=== PATIENT | female | born 1975 | race Two or more races ===

== ENCOUNTER 2020-02-27 08:04 | Outpatient (REF) | payer OTHER, SELFPAY | END 2020-02-27 08:05 | disposition home or self-care (01) | LOC: HO.LAB 08:04 | PROVIDERS: PCP Internal Medicine; Visit Provider Internal Medicine | DX: Z20.828 Contact with and (suspected) exposure to other viral communicable diseases (principal) | CPT/HCPCS: C9803; U0003 ==

== ENCOUNTER → 2020-03-23 12:43 | Outpatient (BNVA) | payer OTHER, SELFPAY | PROVIDERS: PCP Internal Medicine; Visit Provider Orthopaedic Surgery | DX: G56.03 Carpal tunnel syndrome, bilateral upper limbs (principal) | CPT/HCPCS: 20526; 20600; 99212; J1100 ==

== ENCOUNTER → 2020-04-08 10:45 | Outpatient (BNVA) | payer OTHER, SELFPAY | PROVIDERS: PCP Internal Medicine; Visit Provider Surgery | DX: L72.3 Sebaceous cyst (principal) | CPT/HCPCS: 99202 ==

== ENCOUNTER 2020-04-16 08:16 | Outpatient (REF) | payer OTHER, SELFPAY ==
[2020-04-16 08:21] VITALS: BP 128/67; PULSE 81; RESP 16; TEMP 36; O2SAT 99
[2020-04-16 08:22] VITALS: BMI 27.4
[2020-04-16 08:49] VITALS: BP 120/70; PULSE 73; RESP 16; O2SAT 99
--- NOTE | 2020-04-16 09:00 | MHC.SHP ---
Pre-Procedural Eval Section A The patient is an INPATIENT: No Changes since office visit: Yes Patient answered all questions; No Cold of Flu in the past 2 weeks, No New Medical Problems and No Changes in Medication The History & Physical has been completed within 30 days and I have reviewed it.: Yes Section B Chief Complaint: Sebaceous Cyst Allergies: Allergies Allergy/AdvReac Type Severity Reaction Status Date / Time No Known Allergies Allergy Unverified 12/12/19 17:45 Plan Diagnosis/Plan: Unchanged I have reviewed the history and physical and performed a pertinent physical examination on my patient. No changes have occurred unless specified.
--- NOTE | 2020-04-16 09:00 | PM.OP ---
Brief Operative Note Date of Service: 04/16/20 Pre-op diagnosis: Epidermal inclusion cyst posterior neck Post-op diagnosis: same Procedure: Excision of epidermal inclusion cyst posterior neck Implants: None Surgeon: Philip Craft MD Anesthesia: local Estimated blood loss (mL): 5 Pathology: other (Epidermal inclusion cyst posterior neck) Condition: stable Disposition: other (Home)
--- NOTE | 2020-04-16 09:01 | P.OP_ITS ---
Operative Note Operative Note Date of Service: 04/16/20 Narrative: Preoperative diagnosis: Epidermal inclusion cyst posterior neck Postoperative diagnosis: Same Procedure: Excision of epidermal inclusion cyst posterior neck Surgeon: Philip Craft MD Anesthesia: Local Indications for procedure: 44-year-old female presenting with a recurrent inclusion cyst of the posterior neck previously infected but now without evidence of infection. On examination the patient has a 1.5 cm inclusion cyst of the posterior neck with multiple scars overlying the cyst. No fluctuance or tenderness is elicited. Operative findings: 1.5 cm epidermal inclusion cyst posterior neck Complications: None Estimated blood loss: 5 mL Specimen: Epidermal inclusion cyst posterior Procedure details: Patient was brought to the minor surgery suite and placed in a prone position. The site of surgery was confirmed by the patient in the posterior neck. Informed consent was confirmed with the patient. The skin was prepped with Betadine and draped in a sterile fashion. Local anesthesia c onsisting 1% lidocaine with epinephrine was then infiltrated in elliptical fashion oriented transversely. An elliptical incision was then created with a scalpel carried down through subcutaneous tissue. Sharp dissection was continued around the cyst wall down to the subcutaneous tissue. The cyst was excised and sent to pathology for further examination. Wounds were then irrigated and suctioned dry. Deep subcutaneous tissue was closed using interrupted 3-0 Polysorb sutures. Skin was closed using interrupted 3 0 nylon sutures. Sterile dressings were then applied. The patient tolerated the procedure well. She was discharged to home in stable condition.
== END 2020-04-16 08:17 | disposition home or self-care (01) ==
LOC: HO.MS 08:16
PROVIDERS: PCP Internal Medicine; Visit Provider Surgery
PROC: (CPT 11422; principal; 2020-04-16 08:30)
DX: L72.0 Epidermal cyst (principal)
CPT/HCPCS: 11422; 88304

== ENCOUNTER → 2020-04-24 11:49 | Outpatient (BNVA) | payer OTHER, SELFPAY | PROVIDERS: PCP Internal Medicine; Visit Provider Surgery | DX: L72.3 Sebaceous cyst (principal) | CPT/HCPCS: 99212 ==

== ENCOUNTER 2021-08-25 12:48 | Outpatient (REF) | payer OTHER, SELFPAY ==
[2021-08-25 13:29] LABS: Binax Internal Control QC Valid; Binax Now Covid-19 Ag Negative (Negative)
== END 2021-08-25 12:49 | disposition home or self-care (01) ==
LOC: HO.HMGCLDS 12:48
PROVIDERS: PCP Internal Medicine; Visit Provider Internal Medicine
DX: Z20.822 Contact with and (suspected) exposure to COVID-19 (principal); J06.9 Acute upper respiratory infection, unspecified
CPT/HCPCS: 87811; C9803

== ENCOUNTER → 2021-11-16 09:35 | Outpatient (BNVA) | payer OTHER, SELFPAY | PROVIDERS: PCP Internal Medicine; Visit Provider Orthopaedic Surgery | DX: G56.03 Carpal tunnel syndrome, bilateral upper limbs (principal); G56.21 Lesion of ulnar nerve, right upper limb | CPT/HCPCS: 99212 ==

== ENCOUNTER 2021-12-09 10:52 | Day surgery (SDC) | payer OTHER, SELFPAY ==
[2021-12-03 11:11] VITALS: BMI 29.7
[2021-12-09 11:12] VITALS: BMI 30.1
[2021-12-09 11:14] VITALS: BP 120/77; PULSE 90; RESP 16; TEMP 36.6; O2SAT 97
[2021-12-09 13:05] VITALS: PULSE 88; RESP 16; O2SAT 97
--- NOTE | 2021-12-09 13:26 | MHC.SHP ---
Pre-Procedural Eval Section A Date of Service: 12/09/21 The patient is an INPATIENT: No Changes since office visit: No Cold of Flu in the past 2 weeks, No New Medical Problems, No Changes in Medication and No Patient answered all questions The History & Physical has been completed within 30 days and I have reviewed it.: Yes Section B Chief Complaint: Carpal tunnel syndrome, left upper limb Allergies: Allergies Allergy/AdvReac Type Severity Reaction Status Date / Time No Known Allergies Allergy Verified 11/16/21 09:43 Plan I have reviewed the history and physical and performed a pertinent physical examination on my patient. No changes have occurred unless specified.
--- NOTE | 2021-12-09 13:27 | W.PM.OPN ---
Operative Note Operative Note Date of Service: 12/09/21 Narrative: Preop diagnosis: 1. Left Carpal tunnel syndrome Postop diagnosis: same Procedure: 1. Left Carpal tunnel release Surgeon: Alexandra Vicente MD Anesthesia: local block using 1% lidocaine with epinephrine Findings: Thickened transverse carpal ligament. EBL: Less than 5 mL Specimens: None Complications: None Disposition: Brought to recovery room in stable condition Plan: Follow-up for 10-14 days for wound check and suture removal Indications: The patient is 46 years old, with left carpal tunnel syndrome that has been unresponsive to nonoperative management. The risks and benefits of operative treatment including but not limited to risk of damage to blood vessels, nerves, tendons, infection, persistent pain, persistent symptoms, or possible need for additional surgery were discussed with the patient and the patient wishes to proceed with surgery. Procedure: Once consent was obtained a local block was performed using a combination of 1% lidocaine with epinephrine. The patient was then brought back to the operating suite and placed on the operative table in supine position. A tourniquet was applied to the proximal aspect of the left upper extremity and the limb was prepped and draped in a standard surgical fashion. Once assured that we had a good block, a 2.0 cm longitudinal incision was made centered over the carpal tunnel. The incision was made through the skin to the subcutaneous tissues using a #15 blade. Dissection was made down to the level of the transverse carpal ligament with care being taken to protect the palmar cutaneous nerve. Once the transverse carpal ligament was clearly visualized, a longitudinal incision was made in the transverse carpal ligament 1st using a #15 blade, then using tenotomy scissors under direct visualization. Care was taken to look for and protect the motor branch of the median nerve when seen in this area. Once satisfied with our carpal tunnel release the wound was copiously irrigated with normal saline and hemostasis was obtained with a brief period of local pressure. The skin edges were reapproximated with some 5.0 nylon suture material and a sterile dressing was applied. The patient appears to have tolerated the procedure well and with no complications. All digits were well vascularized at the conclusion of the case.
== END 2021-12-09 13:07 | disposition home or self-care (01) ==
PROVIDERS: PCP Internal Medicine; Visit Provider Orthopaedic Surgery
PROC: (CPT 64721; principal; 2021-12-09 11:50)
DX: G56.02 Carpal tunnel syndrome, left upper limb (principal); R20.0 Anesthesia of skin; E66.9 Obesity, unspecified; Z68.27 Body mass index [BMI] 27.0-27.9, adult
CPT/HCPCS: 64721; J0171

== ENCOUNTER 2021-12-14 11:26 | Outpatient (REF) | payer OTHER, SELFPAY ==
[2021-12-14 11:42] LABS: MANUAL DIFF FLAG NO
[2021-12-14 12:17] LABS: Basophils Absolute Auto 0.1 X10*3/uL (0.0-0.2); Basophils Percent Auto 0.6 % (0-2); Eosinophils Absolute Auto 0.1 X10*3/uL (0.0-0.4); Eosinophils Percent Auto 1.2 % (0-4); Hemoglobin 13.6 g/dl (12.0-16.0); Imm Gran Abs Auto 0.03 X10*3/uL (0.00-0.03); Imm Gran Pct Auto 0.4 % (0.0-0.4); Lymphocytes Absolute Auto 2.4 X10*3/uL (1.2-4.9); Lymphocytes Percent Auto 28.6 % (20-40); Mean Corpuscular HGB Conc 33.2 g/dl (31.0-35.0); Mean Corpuscular Hemoglobin 29.5 pg (27.0-33.0); Mean Corpuscular Volume 88.9 fL (80.0-98.0); Mean Platelet Volume 11.6 fL (9.4-12.3); Monocytes Absolute Auto 0.6 X10*3/uL (0.1-1.2); Monocytes Percent Auto 6.5 % (2-11); Neutrophils Absolute Auto 5.3 x10*3/uL (2.0-8.3); Neutrophils Percent Auto 62.7 % (45-73); Platelet Count 240 X10*3/uL (160-400); Red Blood Count 4.61 X10*6/uL (4.20-5.50); Red Cell Distribution Width 12.2 % (11.0-16.0); White Blood Count 8.4 X10*3/uL (4.8-10.8)
[2021-12-14 12:45] LABS: Prothrombin Time 11.1 SEC (10.0-13.1)
[2021-12-14 12:48] LABS: Partial Thromboplastin Time 32.5 SEC (26.0-36.4)
[2021-12-14 13:04] LABS: Alanine Aminotransferase 16 U/L (0-31); Albumin Level 4.5 g/dL (3.5-5.0); Alkaline Phosphatase 81 U/L (39-117); Anion Gap 15 (12-20); Aspartate Amino Transferase 13 U/L (5-31); Bilirubin Total 0.8 mg/dL (0.0-1.0); Blood Urea Nitrogen 11 mg/dL (9-16); Calcium 10.1 mg/dL (8.4-10.2); Carbon Dioxide 25 mmol/L (22-29); Chloride 106 mmol/L (96-108); Cholesterol 270 mg/dL; Estimated Glomerular Filt Rate > 60; Glucose Fasting 92 mg/dL (60-99); HDL Cholesterol 43 mg/dL; LDL Cholesterol Calculated 200 mg/dl; Potassium 4.4 mmol/L (3.3-5.1); Sodium 142 mmol/L (135-145); Total Protein 7.9 g/dL (6.5-8.0); Triglycerides 136 mg/dL
[2021-12-14 13:12] LABS: Thyroid Stimulating Hormone 1.04 uIU/mL (0.32-4.0)
== END 2021-12-14 11:27 | disposition home or self-care (01) ==
LOC: HO.LAB 11:26
PROVIDERS: PCP Internal Medicine; Visit Provider Internal Medicine
DX: Z01.818 Encounter for other preprocedural examination (principal); E03.9 Hypothyroidism, unspecified; I10 Essential (primary) hypertension; E78.5 Hyperlipidemia, unspecified; Z13.0 Encounter for screening for diseases of the blood and blood-forming organs and certain disorders involving the immune mechanism
CPT/HCPCS: 36415; 80053; 80061; 84443; 85025; 85610; 85730

== ENCOUNTER 2021-12-22 12:13 | Outpatient (REF) | payer OTHER, SELFPAY ==
--- NOTE | ~2021-12-22 | XR_ITS ---
EXAMINATION: XR KNEE, LEFT CLINICAL INFORMATION: Pain COMPARISON: None TECHNIQUE: AP and lateral upright views of the left knee. FINDINGS: No fracture or subluxation. Compartmental joint spaces are maintained. Small joint effusion. The soft tissues are otherwise unremarkable. XR/XR knee LT 2V IMPRESSION: Small joint effusion. No osseous abnormality.
== END 2021-12-22 12:14 | disposition home or self-care (01) ==
LOC: HO.XRAY 12:13
PROVIDERS: PCP Internal Medicine; Visit Provider Internal Medicine
DX: M25.562 Pain in left knee (principal)
CPT/HCPCS: 73560

== ENCOUNTER 2022-12-16 11:02 | Outpatient (AMB) | payer OTHER, SELFPAY ==
[2022-12-16 11:08] VITALS: BP 122/60; PULSE 72; O2SAT 98; BMI 30.1
--- NOTE | 2022-12-16 11:08 | A.OFFPC_ITS ---
Vital Signs 12/16/22 11:08 Height 5 ft 3 in Weight 170 lb BMI 30.1 BP 122/60 Blood Pressure Location Lt brachial Position Sitting Pulse 72 Pulse Source Pulse Oximeter Pulse Oximetry (%) 98 Oxygen Delivery Method Room Air Intake Visit Reasons: Annual Exam Hand Outside Cutter Required: No Accompanied by: Self / Same As Patient Allergies No Known Allergies Allergy (Verified 12/16/22 11:09) Medication List - Last Reconciled 12/16/22 by Jeyson Yost MD naproxen (Naprosyn) 500 mg PO BID PRN pantoprazole 40 mg PO DAILY scopolamine base 1 patch transdermal Q3D PRN tizanidine 4 mg PO Q8H PRN Tobacco use date assessed: 12/16/22 Dental Screening Dental Screen Date: 12/16/22 Did you have a dental visit in the last 12 months?: Yes Did you have a dental problem in the last 6 months where you did not have access to dental care?: No Was dental information given to patient?: Patient has dentist HPI Annual Exam HPI Details healthy [facility] Medical History Obesity Carpal tunnel syndrome on both sides Surgical History History of tubal ligation Family History Maternal Grandmother History of hypertension Maternal Uncle History of stomach cancer Social History Housing: House Patient Tobacco Use Status: Never used Tobacco e-Cigarette/Vaping Use: Never Used Second Hand Smoke Exposure: No service: No Current occupational status: unemployed Current occupation: - right handed Cognitive needs: No Hearing needs: No Vision needs: No Questionnaire PHQ-9 Over the last 2 weeks, how often have you been bothered by any of the following problems? 1. Little interest or pleasure in doing things: not at all 2. Feeling down, depressed, or hopeless: not at all 3. Trouble falling or staying asleep, or sleeping too much: not at all 4. Feeling tired or having little energy: not at all 5. Poor appetite or overeating: not at all 6. Feeling bad about yourself - or that you are a failure or have let yourself or your family down: not at all 7. Trouble concentrating on things, such as reading the newspaper or watching television: not at all 8. Moving or speaking so slowly that other people could have noticed. Or the opposite - being so fidgety or restless that you have been moving around a lot more than usual: not at all 9. Thoughts that you would be better off or of hurting yourself in some way: not at all Total score: 0 Depression Screening Interpretation: Negative 47042 - PHQ-9 Billing: Yes Source: Developed by Drs. Puma Blount, Monica Grullon, Juan Maria and colleagues, with an educational kishan from [employer]. Thrive Questionnaire Date Thrive assessed: 12/16/22 I am a: Patient What is your living situation today?: I have a steady place to live Within the past 12 months, did the food you bought not last and you didn't have the money to get more?: Never true Within the past 12 months, did you worry whether your food would run out before you got money to buy more?: Never true Do you have trouble paying for medicines?: No Do you have trouble getting transportation to medical appointments?: No Do you have trouble paying your heating and electricity bill?: No Do you have trouble taking care of your child, family member or friend?: No Do you have trouble with day-to-day activities such as bathing, preparing meals, shopping, managing finances, etc.?: No Are you interested in more education?: No Please select the resources that you would like help with: None AUDIT C Alcohol Use Questionnaire (AUDIT-C) 1. How often do you have a drink containing alcohol?: Never Total Score: 0 Score Reviewed/Action Taken: Yes MAGGIE-7 AMB Questionnaire MAGGIE-7 Date MAGGIE - 7 assessed: 12/16/22 Feeling nervous, anxious, or on edge: 0 = Not at all Not being able to stop or control worryin = Not at all Worrying too much about different things: 0 = Not at all Trouble relaxin = Not at all Being so restless that it is hard to sit still: 0 = Not at all Becoming easily annoyed or irritable: 0 = Not at all Feeling afraid as if something awful might happen: 0 = Not at all Total MAGGIE-7 score (0-4 normal; 5-9 mild; 10-14 moderate; 15-21 severe): 0 Source: Developed by Drs. Puma Blount, Monica Grullon, Juan Maria and colleagues, with an educational kishan from [employer]. MAGGIE-7 Assessment Billing MAGGIE-7 Assessment Tool: MAGGIE-7 Assessment 52595 Review of Systems Const Denies chills, Denies fatigue, Denies headache(s) and Denies weight loss Eyes Denies change in vision, Denies diplopia and Denies eye pain ENT Denies vertigo, Denies dizziness, Denies headache(s) and Denies nasal discharge Card Denies chest pain, Denies rapid heart rate and Denies dyspnea on exertion Resp Denies chest congestion, Denies cough, Denies pain with cough and Denies dyspnea on exertion GI Denies abdominal pain, Denies hematochezia and Denies change in bowel habits Musc Denies myalgias, Denies arthralgias and Denies joint swelling Skin/Breast Denies lesions and Denies unusual bruising Neuro Denies vertigo, Denies dizziness, Denies headache(s) and Denies focal weakness Endo Denies fatigue Physical exam (Primary Care) Vital Signs: Last Vital Signs Pulse 72 12/16/22 11:08 BP 122/60 12/16/22 11:08 Pulse Ox 98 12/16/22 11:08 Oxygen Delivery Method Room Air 12/16/22 11:08 BMI result Body Mass Index 30.1 Tobacco/Smoking Status: Tobacco use Status Tobacco use date assessed 12/16/22 12/16/22 11:13 Patient Tobacco Use Status Never used Tobacco 12/16/22 11:13 e-Cigarette/Vaping Use Never Used 12/16/22 11:13 PHQ-9: PHQ-9 Score PHQ-9: Total score 0 12/16/22 11:13 Depression Screening Interpretation: Negative Thrive Assessment: Date of Thrive Assessment Date Thrive assessed 12/16/22 12/16/22 11:13 Const General: cooperative, healthy appearing and no acute distress Orientation/consciousness: oriented to person, oriented to place and oriented to time HENMT Head: Yes normal to inspection, Yes normocephalic and Yes atraumatic Mouth: Normal oral and palatal mucosa present and tongue normal Throat: Yes posterior oropharynx normal and Yes uvula midline Eyes General: appearance normal, both eyes and all related structures Neck Neck: Yes normal visual inspection, Yes full ROM and Yes no lymphadenopathy Thyroid: Thyroid normal Carotids: normal carotid upstroke Chest Chest palpation & inspection: normal inspection of the chest Resp Effort & Inspection: normal respiratory effort and able to speak in complete sentences Auscultation: clear to auscultation bilaterally Cardio Jugular venous distension: no JVD Palpation: normal PMI Rate: regular rate Rhythm: regular rhythm Heart sounds: S1 normal heart sound present and S2 normal heart sound present GI Inspection: Yes normal to inspection Palpation (GI): Soft to palpation and No hepatosplenomegaly present Auscultation: normal bowel sounds General: Yes no CVA tenderness Back/Spine/Pelvis Back: no CVA tenderness Skin General skin exam: no rashes or lesions noted Neuro General: oriented to person, oriented to place and oriented to time Extrem General: Yes normal to inspection and Yes full ROM Assessment and Plan Assessment & Plan (1) Physical exam: Code(s): Z00.00 - Encounter for general adult medical examination without abnormal findings Plan: healthy; labs Orders: Orders Comprehensive [place]. Panel Fast Today N28.9 - Disorder of kidney and ureter, unspecified Lipid Panel Today E78.5 - Hyperlipidemia, unspecified Complete Blood Count Auto Diff Today D64.9 - Anemia, unspecified Thyroid Stimulating Hormone Today E03.9 - Hypothyroidism, unspecified Referrals Gastroenterology Referral Z12.11 - Encounter for screening for malignant neoplasm of colon Coding Level of Care Code Est Pt Prev Care 40-64y(93168) Diagnoses Physical exam Z00.00 Additional Codes MAGGIE-7 Assessment Billing - MAGGIE-7 Assessment Tool: MAGGIE-7 Assessment 02599 ([id number])
== END 2022-12-16 11:26 | disposition home or self-care (01) ==
PROVIDERS: PCP Internal Medicine; Visit Provider Internal Medicine
DX: Z00.00 Encounter for general adult medical examination without abnormal findings (principal)
CPT/HCPCS: 99396

== ENCOUNTER 2023-10-24 09:03 | Outpatient (AMB) | payer OTHER, SELFPAY ==
[2023-10-24 09:10] VITALS: BP 124/60; PULSE 94; O2SAT 99; BMI 31.2
--- NOTE | 2023-10-24 09:10 | MHC.PC.OV ---
Vital Signs 10/24/23 09:10 Height 5 ft 3 in Weight 176 lb BMI 31.2 BP 124/60 Blood Pressure Location Lt brachial Position Sitting Pulse 94 Pulse Source Pulse Oximeter Pulse Oximetry (%) 99 Oxygen Delivery Method Room Air Intake Visit Reasons: Pain in the arm Allergies No Known Allergies Allergy (Verified 01/18/23 15:12) Tobacco use date assessed: 10/24/23 Dental Screening Dental Screen Date: 10/24/23 Did you have a dental visit in the last 12 months?: Yes Did you have a dental problem in the last 6 months where you did not have access to dental care?: No Was dental information given to patient?: Patient has dentist HPI Pain in the arm HPI Details right shoulder pain for a week PFS Medical History Obesity Carpal tunnel syndrome on both sides Surgical History History of tubal ligation Family History Maternal Grandmother History of hypertension Maternal Uncle History of stomach cancer Social History (System 01/18/23 @ 15:12 by Lala Powers) Housing: House Patient Tobacco Use Status: Never used Tobacco e-Cigarette/Vaping Use: Never Used Second Hand Smoke Exposure: No service: No Current occupational status: unemployed Current occupation: - right handed Cognitive needs: No Hearing needs: No Vision needs: No Questionnaire PHQ-9 Over the last 2 weeks, how often have you been bothered by any of the following problems? 1. Little interest or pleasure in doing things: not at all 2. Feeling down, depressed, or hopeless: not at all 3. Trouble falling or staying asleep, or sleeping too much: not at all 4. Feeling tired or having little energy: not at all 5. Poor appetite or overeating: not at all 6. Feeling bad about yourself - or that you are a failure or have let yourself or your family down: not at all 7. Trouble concentrating on things, such as reading the newspaper or watching television: not at all 8. Moving or speaking so slowly that other people could have noticed. Or the opposite - being so fidgety or restless that you have been moving around a lot more than usual: not at all 9. Thoughts that you would be better off or of hurting yourself in some way: not at all Total score: 0 Depression Screening Interpretation: Negative Depression Screening Done: Yes 64977 - PHQ-9 Billing: Yes Source: Developed by Drs. Puma Blount, Monica Grullon, Juan Maria and colleagues, with an educational kishan from [employer]. Thrive Questionnaire Date Thrive assessed: 10/24/23 I am a: Patient What is your living situation today?: I have a steady place to live Within the past 12 months, did the food you bought not last and you didn't have the money to get more?: Never true Within the past 12 months, did you worry whether your food would run out before you got money to buy more?: Never true Do you have trouble paying for medicines?: No Do you have trouble getting transportation to medical appointments?: No Do you have trouble paying your heating and electricity bill?: No Do you have trouble taking care of your child, family member or friend?: No Do you have trouble with day-to-day activities such as bathing, preparing meals, shopping, managing finances, etc.?: No Are you currently unemployed and looking for a job?: No Are you interested in more education?: No Please select the resources that you would like help with: None THRIVE Score: 0 AUDIT C Alcohol Use Questionnaire (AUDIT-C) 1. How often do you have a drink containing alcohol?: Never Total Score: 0 Score Reviewed/Action Taken: Yes MAGGIE-7 AMB Questionnaire MAGGIE-7 Date MAGGIE - 7 assessed: 10/24/23 Source: Developed by Drs. Puma Blount, Monica Grullon, Juan Maria and colleagues, with an educational kishan from [employer]. Review of Systems Const Denies chills, Denies headache(s) and Denies weight loss ENT Denies headache(s) Card Denies chest pain, Denies syncope, Denies irregular heart rhythm and Denies dyspnea Resp Denies chest congestion, Denies cough and Denies dyspnea GI Denies abdominal pain, Denies change in stool character, Denies nausea and Denies vomiting Musc Denies deformity and Denies joint swelling Neuro Denies syncope and Denies headache(s) Physical exam (Primary Care) Vital Signs: Last Vital Signs Pulse 94 10/24/23 09:10 BP 124/60 10/24/23 09:10 Pulse Ox 99 10/24/23 09:10 Oxygen Delivery Method Room Air 10/24/23 09:10 BMI result Body Mass Index 31.2 Tobacco/Smoking Status: Tobacco use Status Tobacco use date assessed 10/24/23 10/24/23 09:14 Patient Tobacco Use Status Never used Tobacco 10/24/23 09:14 e-Cigarette/Vaping Use Never Used 10/24/23 09:14 PHQ-9: PHQ-9 Score PHQ-9: Total score 0 10/24/23 09:14 Depression Screening Interpretation: Negative Thrive Assessment: Date of Thrive Assessment Date Thrive assessed 10/24/23 10/24/23 09:14 Const General: cooperative, comfortable, no acute distress and alert Neck Neck: Yes no lymphadenopathy Thyroid: Thyroid normal Resp Effort & Inspection: normal respiratory effort Auscultation: clear to auscultation bilaterally Percussion: percussion normal Cardio Jugular venous distension: no JVD Palpation: normal PMI Rate: regular rate Rhythm: regular rhythm Heart sounds: S1 normal heart sound present and S2 normal heart sound present GI Inspection: Yes normal to inspection Palpation (GI): No hepatosplenomegaly present Skin General skin exam: no rashes or lesions noted Extrem General: Yes no clubbing, cyanosis or edema Assessment and Plan Assessment & Plan (1) Shoulder pain: Code(s): M25.519 - Pain in unspecified shoulder Plan: xr and rx sent Orders: Orders XR shoulder LT min 2V 10/24/23 M25.519 - Pain in unspecified shoulder PT Evaluation and Treatment 10/24/23 M25.519 - Pain in unspecified shoulder Medications: New omeprazole 20 mg PO DAILY 90 tabs 8RF Refilled naproxen (Naprosyn) 500 mg PO BID PRN 60 tabs 7RF pain Coding Level of Care Code Est Pt Level 3 (37614) Diagnoses Shoulder pain M25.519
== END 2023-10-24 09:34 | disposition home or self-care (01) ==
PROVIDERS: PCP Internal Medicine; Visit Provider Internal Medicine
DX: M25.511 Pain in right shoulder (principal)
CPT/HCPCS: 99213

== ENCOUNTER 2023-10-24 09:42 | Outpatient (REF) | payer OTHER, SELFPAY ==
--- NOTE | ~2023-10-24 | XR_ITS ---
EXAMINATION: XR SHOULDER, LEFT CLINICAL INFORMATION: Left shoulder pain COMPARISON: None available. TECHNIQUE: AP external rotation, Grashey, scapular Y, and axillary views of the left shoulder. FINDINGS: There is mild acromioclavicular osteoarthritis. Glenohumeral joint is well preserved. No fracture. Alignment is anatomic. Soft tissues are normal with no abnormal calcifications. XR/XR shoulder LT min 2V IMPRESSION: Mild acromioclavicular osteoarthritis. No acute osseous findings.
== END 2023-10-24 09:43 | disposition home or self-care (01) ==
LOC: HO.XRAY 09:42
PROVIDERS: PCP Internal Medicine; Visit Provider Internal Medicine
DX: M25.512 Pain in left shoulder (principal)
CPT/HCPCS: 73030

== ENCOUNTER 2023-11-21 10:38 | Outpatient (AMB) | payer OTHER, SELFPAY ==
--- NOTE | 2023-11-21 10:45 | A.OFFVIS_ITS ---
Vital Signs 11/21/23 10:46 Height 5 ft 3 in Weight 176 lb BMI 31.2 Intake Visit Reasons: NewProb- Carpal tunnel RT hand Intake Note: Nirali is a right hand dominant female who presents today for evaluation of her right hand carpal tunnel. 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 Denies locking on finger. Patient states pain is worse when doing normal daily activities. Patient states that she'd like to try wearing a brace to help with symptoms until her possible surgery. Denies prior steroid injections, PT, OT .meds with/without relief? Denies any surgery to the right hand, Left CTR done 12/09/[address] Vicente. Patient stated she had a bilateral EMG done. Allergies No Known Allergies Allergy (Verified 11/21/23 10:48) HPI HPI NewProb- Carpal tunnel RT hand: Details: Nirali is a 48 year old right hand dominant woman who presents to discuss her right carpal tunnel syndrome. She complains of numbness in the right median nerve distribution. Symptoms intermittent, but daily, worse at night. 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 She denies any small finger numbness. She has a hx of a left carpal tunnel release, DOS: 12/09/21. She says her sensation is normal, with occasional numbness in her hand. She is happy with the results of her surgery. [facility] Medical History Obesity Carpal tunnel syndrome on both sides Surgical History History of tubal ligation Family History Maternal Grandmother History of hypertension Maternal Uncle History of stomach cancer Social History (System 01/18/23 @ 15:12 by Lala Powers) Housing: House Patient Tobacco Use Status: Never used Tobacco e-Cigarette/Vaping Use: Never Used Second Hand Smoke Exposure: No service: No Current occupational status: unemployed Current occupation: - right handed Cognitive needs: No Hearing needs: No Vision needs: No Review of Systems Const All systems reviewed & are unremarkable except as noted in HPI and below Physical Exam Vital Signs: BMI result Body Mass Index 31.2 Const General: no acute distress and alert Orientation/consciousness: patient oriented x3 Neuro General: patient oriented x3 Extrem Other: Evaluation of Right Upper Extremity: The patient is alert, oriented, and in no acute distress Neuro: Median, Ulnar, Radial nerves motor and sensory intact and sensation is normal to the tips of all digits No thenar or intrinsic wasting Good APB muscle belly firing and good finger cross Vascular: Cap refill brisk ROM: She can make a fist and extend all her digits No locking or catching Nerve Conduction study: Impressions: 1. [id number] bilateral Carpal Tunnel 2. Mild right Cubital Tunnel Hoang De Luna MD 08/15/2019 Psych Appearance: grossly normal Affect: normal affect Attitude: cooperative Assessment & Plan Assessment & Plan (1) Carpal tunnel syndrome on both sides: Code(s): G56.03 - Carpal tunnel syndrome, bilateral upper limbs Category: Medical (2) Cubital tunnel syndrome on right: Code(s): G56.21 - Lesion of ulnar nerve, right upper limb Category: Medical Plan Assessment & Plan: 1. Right Carpal Tunnel syndrome, mild-moderate Symptoms intermittent but daily, worse at night I educated her about this condition I discussed operative and non-operative treatment options The patient would like to proceed with surgery She was fitted for a velcro wrist splint to wear at night The risks and benefits of operative treatment were discussed with the patient and the patient wishes to proceed with surgery. These risks include, but are not limited to risk of damage to blood vessels, nerves, tendons, infection, recurrence, incomplete relief of preoperative symptoms, persistent pain, possible need for further surgery and the risks associated with regional blocks and anesthesia. The plan is to take the patient to the operating room sometime in the next few weeks for the following procedures: 1. Right carpal tunnel release, under local All of the preoperative paperwork including the consent was reviewed today. All the patient's questions were answered. The patient understands that they will be contacted by our dental surgery doctor soon to schedule this procedure She denies Diabetes, blood thinners, asthma, heart, lung, kidney issues 2. Right Cubital Tunnel syndrome, Mild She denies any small finger numbness I educated her on the signs of worsening Cubital tunnel syndrome, as well as the risks of delaying treatment if she does develop any new or worsening numbness She expressed understanding 3. Left Carpal Tunnel syndrome, S/P release DOS: 12/09/21 Pre-operative symptoms intermittent, but daily, worse at night Now with normal sensation Scribed for Alexandra Vicente MD by Barrie Yoon, electromedical service engineer, on 11/21/23 at 11:20 AM, EST. Coding Level of Care Code Est Pt Level 4 (05491) Diagnoses Carpal tunnel syndrome on both sides G56.03 Cubital tunnel syndrome on right G56.21
[2023-11-21 10:46] VITALS: BMI 31.2
== END 2023-11-21 11:28 | disposition home or self-care (01) ==
PROVIDERS: PCP Internal Medicine; Visit Provider Orthopaedic Surgery
DX: G56.03 Carpal tunnel syndrome, bilateral upper limbs (principal); G56.21 Lesion of ulnar nerve, right upper limb
CPT/HCPCS: 99214

== ENCOUNTER → 2023-11-21 10:38 | Outpatient (BNVA) | payer OTHER, SELFPAY | PROVIDERS: PCP Internal Medicine; Visit Provider Orthopaedic Surgery | DX: G56.21 Lesion of ulnar nerve, right upper limb (principal); G56.01 Carpal tunnel syndrome, right upper limb; Z86.69 Personal history of other diseases of the nervous system and sense organs | CPT/HCPCS: 99212 ==

== ENCOUNTER 2023-12-20 08:58 | Outpatient (AMB) | payer OTHER, SELFPAY ==
[2023-12-20 08:59] VITALS: BP 128/70; PULSE 102; O2SAT 94; BMI 31.5
--- NOTE | 2023-12-20 08:59 | MHC.PC.OV ---
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 Accompanied by: Self / Same As Patient Allergies No Known Allergies Allergy (Verified 12/20/23 09:00) Medication List - Last Reconciled 12/20/23 by Jeyson Yost MD naproxen (Naprosyn) 500 mg PO BID PRN omeprazole 20 mg PO DAILY pantoprazole 40 mg PO DAILY scopolamine base 1 patch transdermal Q3D PRN tizanidine 4 mg PO Q8H PRN Tobacco use date assessed: 10/24/23 Dental Screening Dental Screen Date: 10/24/23 HPI ANNUAL HPI Details healthy; has CTS surgery scheduled [facility] Medical History Obesity Carpal tunnel syndrome on both sides Surgical History History of tubal ligation Family History Maternal Grandmother History of hypertension Maternal Uncle History of stomach cancer Social History (System 01/18/23 @ 15:12 by Lala Powers) Housing: House Patient Tobacco Use Status: Never used Tobacco Tobacco use type: Cigarette e-Cigarette/Vaping Use: Never Used Second Hand Smoke Exposure: No service: No Current occupational status: unemployed Current occupation: - right handed Cognitive needs: No Hearing needs: No Vision needs: No Questionnaire PHQ-9 Over the last 2 weeks, how often have you been bothered by any of the following problems? 1. Little interest or pleasure in doing things: not at all 2. Feeling down, depressed, or hopeless: not at all 3. Trouble falling or staying asleep, or sleeping too much: not at all 4. Feeling tired or having little energy: not at all 5. Poor appetite or overeating: not at all 6. Feeling bad about yourself - or that you are a failure or have let yourself or your family down: not at all 7. Trouble concentrating on things, such as reading the newspaper or watching television: not at all 8. Moving or speaking so slowly that other people could have noticed. Or the opposite - being so fidgety or restless that you have been moving around a lot more than usual: not at all 9. Thoughts that you would be better off or of hurting yourself in some way: not at all Total score: 0 Depression Screening Interpretation: Negative Depression Screening Done: Yes 33611 - PHQ-9 Billing: Yes Source: Developed by Drs. Puma Blount, Monica Grullon, Juan Maria and colleagues, with an educational kishan from [employer]. Thrive Questionnaire Date Thrive assessed: 12/19/23 I am a: Patient What is your living situation today?: I have a steady place to live Within the past 12 months, did the food you bought not last and you didn't have the money to get more?: Never true Within the past 12 months, did you worry whether your food would run out before you got money to buy more?: Never true Do you have trouble paying for medicines?: No Do you have trouble getting transportation to medical appointments?: No Do you have trouble paying your heating and electricity bill?: I choose not to answer this question Do you have trouble taking care of your child, family member or friend?: No Do you have trouble with day-to-day activities such as bathing, preparing meals, shopping, managing finances, etc.?: No Are you currently unemployed and looking for a job?: No Are you interested in more education?: No Please select the resources that you would like help with: None Currently or been in a relationship where the following occur: No concerns reported THRIVE Score: 0 AUDIT C Alcohol Use Questionnaire (AUDIT-C) 1. How often do you have a drink containing alcohol?: Never 3. How often do you have six or more drinks on one occasion?: Never Total Score: 0 MAGGIE-7 AMB Questionnaire MAGGIE-7 Date MAGGIE - 7 assessed: 10/24/23 Feeling nervous, anxious, or on edge: 0 = Not at all Not being able to stop or control worryin = Not at all Worrying too much about different things: 0 = Not at all Trouble relaxin = Not at all Being so restless that it is hard to sit still: 0 = Not at all Becoming easily annoyed or irritable: 0 = Not at all Feeling afraid as if something awful might happen: 0 = Not at all Total MAGGIE-7 score (0-4 normal; 5-9 mild; 10-14 moderate; 15-21 severe): 0 Source: Developed by Drs. Puma Blount, Monica Grullon, Juan Maria and colleagues, with an educational kishan from [employer]. Review of Systems Const Denies chills, Denies fatigue, Denies headache(s) and Denies weight loss Eyes Denies change in vision, Denies diplopia and Denies eye pain ENT Denies vertigo, Denies dizziness, Denies headache(s) and Denies nasal discharge Card Denies chest pain, Denies rapid heart rate and Denies dyspnea on exertion Resp Denies chest congestion, Denies cough, Denies pain with cough and Denies dyspnea on exertion GI Denies abdominal pain, Denies hematochezia and Denies change in bowel habits Musc Denies myalgias, Denies arthralgias and Denies joint swelling Skin/Breast Denies lesions and Denies unusual bruising Neuro Denies vertigo, Denies dizziness, Denies headache(s) and Denies focal weakness Endo Denies fatigue Physical exam (Primary Care) Vital Signs: Last Vital Signs Pulse 102 H 12/20/23 08:59 BP 128/70 12/20/23 08:59 Pulse Ox 94 12/20/23 08:59 Oxygen Delivery Method Room Air 12/20/23 08:59 BMI result Body Mass Index 31.5 Tobacco/Smoking Status: Tobacco use Status Tobacco use date assessed 10/24/23 12/20/23 09:04 Patient Tobacco Use Status Never used Tobacco 12/20/23 09:04 Tobacco use type Cigarette 12/20/23 09:04 e-Cigarette/Vaping Use Never Used 12/20/23 09:04 PHQ-9: PHQ-9 Score PHQ-9: Total score 0 12/20/23 09:04 Depression Screening Interpretation: Negative Thrive Assessment: Date of Thrive Assessment Date Thrive assessed 12/19/23 12/20/23 09:04 Currently or been in a relationship where the following occur: No concerns reported Const General: cooperative, healthy appearing and no acute distress Orientation/consciousness: oriented to person, oriented to place and oriented to time HENOR Head: Yes normal to inspection, Yes normocephalic and Yes atraumatic Mouth: Normal oral and palatal mucosa present and tongue normal Throat: Yes posterior oropharynx normal and Yes uvula midline Eyes General: appearance normal, both eyes and all related structures Neck Neck: Yes normal visual inspection, Yes full ROM and Yes no lymphadenopathy Thyroid: Thyroid normal Carotids: normal carotid upstroke Chest Chest palpation & inspection: normal inspection of the chest Resp Effort & Inspection: normal respiratory effort and able to speak in complete sentences Auscultation: clear to auscultation bilaterally Cardio Jugular venous distension: no JVD Palpation: normal PMI Rate: regular rate Rhythm: regular rhythm Heart sounds: S1 normal heart sound present and S2 normal heart sound present GI Inspection: Yes normal to inspection Palpation (GI): Soft to palpation and No hepatosplenomegaly present Auscultation: normal bowel sounds General: Yes no CVA tenderness Back/Spine/Pelvis Back: no CVA tenderness Skin General skin exam: no rashes or lesions noted Neuro General: oriented to person, oriented to place and oriented to time Extrem General: Yes normal to inspection and Yes full ROM Assessment and Plan Assessment & Plan (1) Physical exam: Code(s): Z00.00 - Encounter for general adult medical examination without abnormal findings Plan: stable; do labs Orders: Orders Lipid Panel Today Z13.220 - Encounter for screening for lipoid disorders Comprehensive [place]. Panel Fast Today Z13.9 - Encounter for screening, unspecified Thyroid Stimulating Hormone Today Z13.29 - Encounter for screening for other suspected endocrine disorder Complete Blood Count Auto Diff Today Z13.0 - Encounter for screening for diseases of the blood and blood-forming organs and certain disorders involving the immune mechanism Coding Level of Care Code Est Pt Prev Care 40-64y(40513) Diagnoses Physical exam Z00.00
== END 2023-12-20 11:45 | disposition home or self-care (01) ==
PROVIDERS: PCP Internal Medicine; Visit Provider Internal Medicine
DX: Z00.00 Encounter for general adult medical examination without abnormal findings (principal)

== ENCOUNTER → 2023-12-20 08:58 | Outpatient (BNVA) | payer OTHER, SELFPAY | PROVIDERS: PCP Internal Medicine; Visit Provider Internal Medicine | DX: Z00.00 Encounter for general adult medical examination without abnormal findings (principal) | CPT/HCPCS: 96127; 99396 ==

== ENCOUNTER 2024-01-29 09:08 | Day surgery (SDC) | payer OTHER, SELFPAY ==
[2024-01-29 10:32] VITALS: BP 130/65; PULSE 78; RESP 16; TEMP 36.8; O2SAT 97; BMI 31.0
--- NOTE | 2024-01-29 13:04 | MHC.SHP ---
Pre-Procedural Eval Section A - 24 Hr Update-Section A only Date of Service: 01/29/24 The patient is an INPATIENT: No Changes since office visit: No Cold of Flu in the past 2 weeks, No New Medical Problems, No Changes in Medication and No Patient answered all questions The patient has been examined within 24 hours of the surgical procedure. The History & Physical has been completed within 30 days and I have reviewed it.: Yes Section B - Complete if H&P > 30 days Chief Complaint: Carpal tunnel syndrome, right upper limb Allergies: Allergies Allergy/AdvReac Type Severity Reaction Status Date / Time No Known Allergies Allergy Verified 12/20/23 09:00 Plan Diagnosis/Plan: Unchanged I have reviewed the history and physical and performed a pertinent physical examination on my patient. No changes have occurred unless specified. Time Spent With Patient Time: Total time managing care of this patient today ____ minutes.
--- NOTE | 2024-01-29 13:36 | W.PM.OPN ---
Operative Note Operative Note Date of Service: 01/29/24 Narrative: Preop diagnosis: 1. Right Carpal tunnel syndrome Postop diagnosis: same Procedure: 1. Right Carpal tunnel release Surgeon: Alexandra Vicente MD Spanish Language Lecturer: None Anesthesia: local block using 1% lidocaine with epinephrine Findings: Thickened transverse carpal ligament. EBL: Less than 5 mL Specimens: None Complications: None Disposition: Brought to recovery room in stable condition Plan: Follow-up for 10-14 days for wound check and suture removal Indications: The patient is 48 years old, with right carpal tunnel syndrome that has been unresponsive to nonoperative management. The risks and benefits of operative treatment including but not limited to risk of damage to blood vessels, nerves, tendons, infection, persistent pain, persistent symptoms, or possible need for additional surgery were discussed with the patient and the patient wishes to proceed with surgery. Procedure: Once consent was obtained a local block was performed using a combination of 1% lidocaine with epinephrine. The patient was then brought back to the operating suite and placed on the operative table in supine position. The right upper extremity was prepped and draped in a standard surgical fashion. Once assured that we had a good block, a 2.0 cm longitudinal incision was made centered over the carpal tunnel. The incision was made through the skin to the subcutaneous tissues using a #15 blade. Dissection was made down to the level of the transverse carpal ligament with care being taken to protect the palmar cutaneous nerve. Once the transverse carpal ligament was clearly visualized, a longitudinal incision was made in the transverse carpal ligament 1st using a #15 blade, then using tenotomy scissors under direct visualization. Care was taken to look for and protect the motor branch of the median nerve when seen in this area. Once satisfied with our carpal tunnel release the wound was copiously irrigated with normal saline and hemostasis was obtained with a brief period of local pressure. The skin edges were reapproximated with some 5.0 nylon suture material and a sterile dressing was applied. The patient appears to have tolerated the procedure well and with no complications. All digits were well vascularized at the conclusion of the case.
[2024-01-29 14:22] VITALS: BP 127/82; PULSE 79; RESP 20; O2SAT 98
== END 2024-01-29 14:30 | disposition home or self-care (01) ==
PROVIDERS: PCP Internal Medicine; Visit Provider Orthopaedic Surgery
PROC: (CPT 64721; principal; 2024-01-29 11:20)
DX: G56.01 Carpal tunnel syndrome, right upper limb (principal); R20.0 Anesthesia of skin; R20.2 Paresthesia of skin; E66.9 Obesity, unspecified; Z68.31 Body mass index [BMI] 31.0-31.9, adult; Z56.0 Unemployment, unspecified; Z98.51 Tubal ligation status
CPT/HCPCS: 64721; J0171; J2003

== ENCOUNTER → 2024-01-29 09:08 | Outpatient (BNV) | payer OTHER, SELFPAY | PROVIDERS: PCP Internal Medicine; Visit Provider Orthopaedic Surgery | DX: G56.01 Carpal tunnel syndrome, right upper limb (principal) | CPT/HCPCS: 64721 ==

== ENCOUNTER 2024-02-13 13:02 | Outpatient (AMB) | payer OTHER, SELFPAY ==
--- NOTE | 2024-02-13 13:04 | A.OFFVIS_ITS ---
Vital Signs 02/13/24 13:05 Height 5 ft 3 in Weight 175 lb BMI 31.0 Handedness Right Intake Visit Reasons: PO RT CTR 01/29/24 AR Intake Note: Nirali is a 48 year old right hand dominant female who presents today post operatively s/p right carpal tunnel release w/ Dr Vicente DOS: 01/29/2024. Patient reports she no longer has numbness and tingling. Denies pain and finger locking. Denies drainage from incision. Sutures removed and steri strips applied. Allergies No Known Allergies Allergy (Verified 02/13/24 13:06) HPI HPI PO RT CTR 01/29/24 AR: Details: Patient is a 48-year-old female who presents for postoperative evaluation status post right carpal tunnel release, DOS 01/29/[address] Vicente. Patient reports that she is recovering very well from her surgery, and has no acute complaints or concerns at this time. Denies any ongoing numbness or tingling in the right. [facility] Medical History Obesity Carpal tunnel syndrome on both sides Surgical History History of tubal ligation Family History Maternal Grandmother History of hypertension Maternal Uncle History of stomach cancer Social History Housing: House Patient Tobacco Use Status: Never used Tobacco Tobacco use type: Cigarette e-Cigarette/Vaping Use: Never Used Second Hand Smoke Exposure: No service: No Current occupational status: unemployed Current occupation: - right handed Cognitive needs: No Hearing needs: No Vision needs: No Physical Exam Vital Signs: BMI result Body Mass Index 31.0 Extrem Other: Neuro: Normal sensation of the tips of all digits of the right hand at this time Vascular: Capillary refill brisk. ROM: Patient can make a fist and extend all their digits. Skin: Well approximated and well healing incision site noted on the volar aspect of the patient's right wrist No evidence of infection. General: No ecchymosis. No erythema or evidence of infection. Assessment & Plan Assessment & Plan (1) Carpal tunnel syndrome on both sides: Code(s): G56.03 - Carpal tunnel syndrome, bilateral upper limbs Category: Medical Plan 1. Carpal tunnel syndrome, right, status post carpal tunnel release DOS 01/29/2024 Patient appears to be recovering well postoperatively Patient is educated about the typical recovery course At this time, patient is informed that she will not require any acute follow-up, as she appears to be recovering very well and showing no signs of ongoing numbness and tingling or stiffness Patient was amenable to this plan Patient will follow-up as needed with any acute concerns Coding Level of Care Code Global (53317) Diagnoses Carpal tunnel syndrome on both sides G56.03
[2024-02-13 13:05] VITALS: BMI 31.0
== END 2024-02-13 13:18 | disposition home or self-care (01) ==
PROVIDERS: PCP Internal Medicine
DX: G56.03 Carpal tunnel syndrome, bilateral upper limbs (principal)
CPT/HCPCS: 99024

== ENCOUNTER → 2024-02-13 13:02 | Outpatient (BNVA) | payer OTHER, SELFPAY | PROVIDERS: PCP Internal Medicine | DX: Z47.89 Encounter for other orthopedic aftercare (principal); G56.02 Carpal tunnel syndrome, left upper limb; Z98.890 Other specified postprocedural states | CPT/HCPCS: 99212 ==

== ENCOUNTER 2024-06-10 11:24 | Outpatient (AMB) | payer OTHER, SELFPAY ==
--- NOTE | 2024-06-10 11:31 | MHC.PC.OV ---
Vital Signs 06/10/24 11:32 Height 5 ft 3 in Weight 178 lb 4 oz BMI 31.6 BP 130/80 Blood Pressure Location Lt brachial Position Sitting Pulse 102 H Pulse Source Pulse Oximeter Temp 97.7 F Temp Source Temporal Artery Scan Pulse Oximetry (%) 98 Oxygen Delivery Method Room Air Intake Visit Reasons: Back pain Intake Note: Patient is here to follow up on Back pain. 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: Not Required per policy Accompanied by: Self / Same As Patient Allergies No Known Allergies Allergy (Verified 06/10/24 11:32) Medication List - Last Reconciled 06/10/24 by Jeyson Yost MD pantoprazole 40 mg PO DAILY Tobacco use date assessed: 06/10/24 Dental Screening Dental Screen Date: 06/10/24 Did you have a dental visit in the last 12 months?: No Did you have a dental problem in the last 6 months where you did not have access to dental care?: No Was dental information given to patient?: Patient has dentist HPI Back pain HPI Details mid low back pain for a week; no injury; recurrent PFSH Medical History Obesity Carpal tunnel syndrome on both sides Surgical History History of tubal ligation Family History (Updated 06/10/24 @ 11:31 by CASEY Rojas) Maternal Grandmother History of hypertension Maternal Uncle History of stomach cancer Social History Housing: House Patient Tobacco Use Status: Never used Tobacco Tobacco use type: Cigarette e-Cigarette/Vaping Use: Never Used Second Hand Smoke Exposure: No service: No Current occupational status: unemployed Current occupation: - right handed Cognitive needs: No Hearing needs: No Vision needs: No Questionnaire PHQ-9 Over the last 2 weeks, how often have you been bothered by any of the following problems? 1. Little interest or pleasure in doing things: not at all 2. Feeling down, depressed, or hopeless: not at all 3. Trouble falling or staying asleep, or sleeping too much: not at all 4. Feeling tired or having little energy: not at all 5. Poor appetite or overeating: not at all 6. Feeling bad about yourself - or that you are a failure or have let yourself or your family down: not at all 7. Trouble concentrating on things, such as reading the newspaper or watching television: not at all 8. Moving or speaking so slowly that other people could have noticed. Or the opposite - being so fidgety or restless that you have been moving around a lot more than usual: not at all 9. Thoughts that you would be better off or of hurting yourself in some way: not at all Total score: 0 Depression Screening Interpretation: Negative Depression Screening Done: Yes Source: Developed by Drs. Puma Blount, Monica Grullon, Juan Maria and colleagues, with an educational kishan from [employer]. Thrive Questionnaire Date Thrive assessed: 06/10/24 I am a: Patient What is your living situation today?: I have a steady place to live Within the past 12 months, did the food you bought not last and you didn't have the money to get more?: Never true Within the past 12 months, did you worry whether your food would run out before you got money to buy more?: Never true Do you have trouble paying for medicines?: No Do you have trouble getting transportation to medical appointments?: No Do you have trouble paying your heating and electricity bill?: I choose not to answer this question Do you have trouble taking care of your child, family member or friend?: No Do you have trouble with day-to-day activities such as bathing, preparing meals, shopping, managing finances, etc.?: No Are you currently unemployed and looking for a job?: No Are you interested in more education?: No Please select the resources that you would like help with: None Currently or been in a relationship where the following occur: No concerns reported THRIVE Score: 0 AUDIT C Alcohol Use Questionnaire (AUDIT-C) 1. How often do you have a drink containing alcohol?: Never 3. How often do you have six or more drinks on one occasion?: Never Total Score: 0 MAGGIE-7 AMB Questionnaire MAGGIE-7 Date MAGGIE - 7 assessed: 06/10/24 Feeling nervous, anxious, or on edge: 0 = Not at all Not being able to stop or control worryin = Not at all Worrying too much about different things: 0 = Not at all Trouble relaxin = Not at all Being so restless that it is hard to sit still: 0 = Not at all Becoming easily annoyed or irritable: 0 = Not at all Feeling afraid as if something awful might happen: 0 = Not at all Total MAGGIE-7 score (0-4 normal; 5-9 mild; 10-14 moderate; 15-21 severe): 0 Source: Developed by Drs. Puma Blount, Monica Grullon, Juan Maria and colleagues, with an educational kishan from [employer]. Review of Systems Const Denies chills, Denies headache(s) and Denies weight loss ENT Denies headache(s) Card Denies chest pain, Denies syncope, Denies irregular heart rhythm and Denies dyspnea Resp Denies chest congestion, Denies cough and Denies dyspnea GI Denies abdominal pain, Denies change in stool character, Denies nausea and Denies vomiting Musc Denies deformity and Denies joint swelling Neuro Denies syncope and Denies headache(s) Physical exam (Primary Care) Vital Signs: Last Vital Signs Temp 97.7 F 06/10/24 11:32 Pulse 102 H 06/10/24 11:32 BP 130/80 06/10/24 11:32 Pulse Ox 98 06/10/24 11:32 Oxygen Delivery Method Room Air 06/10/24 11:32 BMI result Body Mass Index 31.6 Tobacco/Smoking Status: Tobacco use Status Tobacco use date assessed 06/10/24 06/10/24 11:42 Patient Tobacco Use Status Never used Tobacco 06/10/24 11:42 Tobacco use type Cigarette 06/10/24 11:42 e-Cigarette/Vaping Use Never Used 06/10/24 11:42 PHQ-9: PHQ-9 Score PHQ-9: Total score 0 06/10/24 11:42 Depression Screening Interpretation: Negative Thrive Assessment: Date of Thrive Assessment Date Thrive assessed 06/10/24 06/10/24 11:42 Currently or been in a relationship where the following occur: No concerns reported Coding Level of Care Code Est Pt Level 3 (49783) Diagnoses Low back pain M54.50 Assessment & Plan Assessment & Plan (1) Low back pain: Code(s): M54.50 - Low back pain, unspecified Category: Medical Plan: rx sent Medications: New tramadol 50 mg PO Q8H PRN 20 tabs 0RF pain
[2024-06-10 11:32] VITALS: BP 130/80; PULSE 102; TEMP 36.5; O2SAT 98; BMI 31.6
--- OUTSIDE RECORDS SUMMARY | 2024-06-10 13:35 | XMS_ITS ---
Author Organization [facility] Address [address] [place] [phone] Care Team Providers Care Supervisor Bleach Plant Name Role Phone Jeyson Yost MD Primary Care Provider UnavailPuma Puente [phone] REASON FOR VISIT New pt no show Encounters Encounter Location Date Provider Diagnosis [facility] [address] [place] [phone] 05/04/2023 Puma Mcdowell Plan Of Treatment Next Appt Details Provider Name:Puma Mcdowell , 06/26/2024 11:40:00 AM, [address], [place], [phone], Progress Notes * DAVID ARREGUINDOB:[birth year] (47 yo F)Acc No.[id number]:05/04/2023 Patient:?KALLIE, DAVID :1975???Age:47 Y???Sex:Female Address:[address] [place] [address], [address] * true * Date:? Generated for Printi marina/Zackary/eTransmitting on:?06/10/2024 01:35 PM EDT
--- OUTSIDE RECORDS SUMMARY | 2024-06-10 13:35 | XMS_ITS ---
Author Organization [facility] Address [address] [place] [phone] Care Team Providers Care Chair Springer Name Role Phone Jeyson Yost MD Primary Care Provider Puma Stephenson [phone] REASON FOR VISIT bowel prep Medications Medication SIG (Take, Route, Frequency, Duration) Notes Start Date End Date Status Dulcolax (colon prep) 5 MG Take 2 tablet s 2 days before the colonoscopy, and then take 2 at 3:00 p.m and 7:00p.m. the day before the colonoscopy, Orally, 2 tablets once two days before the colonoscopy, and then two tablets twice a day for one day before the colonoscopy for 2 days 03/27/2024 Active MiraLax (colon prep) 17 GM/SCOOP 1/2 of a 238Gm bottle 2 days before the colonoscopy mixed in 1 quart of Gatorade, and then 1 238Gm bottle mixed with Gatorade or Crystal Light the day before the colonoscopy Orally do once 2 days before the colonoscopy, and then 1 bottle begin at 5:00 p.m. the day before the procedure for 2 days 03/27/2024 Active Encounters Encounter Location Date Provider Diagnosis [address] [phone] 03/26/2024 Puma Mcdowell Plan Of Treatment Medication Medication Name Sig Start Date Stop Date Notes Dulcolax (colon prep) 5 MG Take 2 tablet s 2 days before the colonoscopy, and then take 2 at 3:00 p.m and 7:00p.m. the day before the colonoscopy, Orally, 2 tablets once two days before the colonoscopy, and then two tablets twice a day for one day before the colonoscopy for 2 days 03/27/2024 MiraLax (colon prep) 17 GM/SCOOP 1/2 of a 238Gm bottle 2 days before the colonoscopy mixed in 1 quart of Gatorade, and then 1 238Gm bottle mixed with Gatorade or Crystal Light the day before the colonoscopy Orally do once 2 days before the colonoscopy, and then 1 bottle begin at 5:00 p.m. the day before the procedure for 2 days 03/27/2024 Next Appt Details Provider Name:Puma Mcdowell , 06/26/2024 11:40:00 AM, [address] [place] [address] , [place], [place], [phone], Progress Notes * KALLIEDAVIDDOB:[birth year] (48 yo F)Acc No.[id number]:03/26/2024 Patient:?USHA ARREGUINZMIN :1975???Age:48 Y???Sex:Female Address:[address] [place] [address], [address] * Refills? Start Dulcolax (colon prep) Tablet Delayed Release, 5 MG, Orally,, 6, Take 2 tablets 2 days before the colonoscopy, and then take 2 at 3:00 p.m and 7:00p.m. the day before the colonoscopy,, 2 tablets once two days before the colonoscopy, and then two tablets twice a day for one day before the colonoscopy, 2 days, Refills=0 Start MiraLax (colon prep) Powder, 17 GM/SCOOP, Orally, 2, 1/2 of a 238Gm bottle 2 days before the colonoscopy mixed in 1 quart of Gatorade, and then 1 238Gm bottle mixed with Gatorade or Crystal Light the day before the colonoscopy, do once 2 days before the colonoscopy, and then 1 bottle begin at 5:00 p.m. the day before the procedure, 2 days, Refills=0 * true * Date:? Generated for Tanya gray/Zackary/Juan Mitting on:?06/10/2024 01:35 PM EDT
--- OUTSIDE RECORDS SUMMARY | 2024-06-10 13:35 | XMS_ITS | Patient Health Record ---
Author Organization [facility] Address [address] [place] [address] Care Team Providers Care Apartment Manager Name Role Phone Priyank DOMINGUEZ, Jeyson Primary Care Provider Puma Stephenson Unavailable [phone] Allergies No Known Allergies Reason For Referral No Information Medications Medication SIG (Take, Route, Frequency, Duration) [...] the procedure for 2 days 03/27/2024 Active Omeprazole 20 MG 1 capsule 1/2 to 1 h our before morning meal Orally Once a day Active Immunizations Vaccine Route Administration Date Status Comme nts Influenza Unknown 03/26/2024 Refused Social History Tobacco Use: Social History Observation Description Date Details (start date - stop date) Never Smoker NA - NA Tobacco Use/Smoking Question Answer Notes Patient is a nonsmoker Alcohol Screen Question Answer Notes Did you have a drink containing alcohol in the p ast year? No Points 0 Interpretation Negative Section Notes: Nonsmoker; no sig alcohol Problems Problem Type SNOMED Code ICD Code Onset Dates Problem Status W/U Status Risk Notes Problem Colon cancer screening (435768469) Colon cancer screening (Z12.11) Active confirmed Problem Chronic constipation (976268955) Chronic constipation (K59.09) Active confirmed Problem Gastroesophageal reflux disease (disorder) (632211256) Chronic GERD (K21.9) Active confirmed Vital Signs Temperature 98.9 degrees Fahrenheit 03/26/2024 Blood pressure diastolic 01 mm Hg 03/26/2024 Height 63 in 03/26/2024 Blood pressure systolic 001 mm Hg 03/26/2024 Weight 177.6 lbs 03/26/2024 BMI 31.46 kg/m2 03/26/2024 Encounters Encounter Location Date Provider Diagnosis [facility] [address] [place] [phone] 03/26/2024 Puma Mcdowell Chronic constipation K59.09 ; Colon cancer screening Z12.11 and Chronic GERD K21.9 [facility] [address] [place] [phone] 03/26/2024 Puma Mcdowell Assessments Encounter Date Diagnosis (ICD Code) Assessment Notes Treatment Notes Treatment Clinical Notes Section Notes 03/26/2024 Colon cancer screening (ICD-10 - Z12.11) Overall, David appears quite well. Her chronic constipation does not seem worrisome, but nonetheless is bothersome to her. We did review the need to stay on a high-fiber diet, plenty of fluids, and to start some supplemental fiber such as Metamucil as I outlined for her below. I did advise to try to decrease the magnesium supplements if the fiber works sufficiently for her. I did recommend a colonoscopy for screening purposes given her age and good clinical appearance. We did review the rationale for this in regard to colon cancer prevention. Given her chronic constipation I did recommend a 2 day prep for the colonoscopy to hopefully allow for an adequate clean out. I also recommended an upper endoscopy on the same day given what appears to be some long-standing reflux and fairly frequent need for PPI. We did review the rationale for that in regard to the need to rule out significant esophagitis, hiatal hernia, and/or Aguilar's esophagus. Both procedures will be done with monitored anesthesia care. Full consent was obtained from her for both procedures, including risks of bleeding and perforation. David was comfortable with this plan. Thank you again for allowing me to participate in David's care. I shall continue to keep you advised of her progress. 03/26/2024 Chronic constipation (ICD-10 - K59.09) Start 2 Fiber Metamucil pills with a large glass of water once or twice a day for the constipation Try to decrease the Magnesium pills that you are using Overall, David appears quite well. Her chronic constipation does not seem worrisome, but nonetheless is bothersome to her. We did review the need to stay on a high-fiber diet, plenty of fluids, and to start some supplemental fiber such as Metamucil as I outlined for her below. I did advise to try to decrease the magnesium supplements if the fiber works sufficiently for her. I did recommend a colonoscopy for screening purposes given her age and good clinical appearance. We did review the rationale for this in regard to colon cancer prevention. Given her chronic constipation I did recommend a 2 day prep for the colonoscopy to hopefully allow for an adequate clean out. I also recommended an upper endoscopy on the same day given what appears to be some long-standing reflux and fairly frequent need for PPI. We did review the rationale for that in regard to the need to rule out significant esophagitis, hiatal hernia, and/or Aguilar's esophagus. Both procedures will be done with monitored anesthesia care. Full consent was obtained from her for both procedures, including risks of bleeding and perforation. David was comfortable with this plan. Thank you again for allowing me to participate in David's care. I shall continue to keep you advised of her progress. 03/26/2024 Chronic GERD (ICD-10 - K21.9) Overall, David appears quite well. Her chronic constipation does not seem worrisome, but nonetheless is bothersome to her. We did review the need to stay on a high-fiber diet, plenty of fluids, and to start some supplemental fiber such as Metamucil as I outlined for her below. I did advise to try to decrease the magnesium supplements if the fiber works sufficiently for her. I did recommend a colonoscopy for screening purposes given her age and good clinical appearance. We did review the rationale for this in regard to colon cancer prevention. Given her chronic constipation I did recommend a 2 day prep for the colonoscopy to hopefully allow for an adequate clean out. I also recommended an upper endoscopy on the same day given what appears to be some long-standing reflux and fairly frequent need for PPI. We did review the rationale for that in regard to the need to rule out significant esophagitis, hiatal hernia, and/or Aguilar's esophagus. Both procedures will be done with monitored anesthesia care. Full consent was obtained from her for both procedures, including risks of bleeding and perforation. David was comfortable with this plan. Thank you again for allowing me to participate in David's care. I shall continue to keep you advised of her progress. Plan Of Treatment Future Test Test Name Order Date UPPER GI ENDOSCOPY 03/26/2024 COLONOSCOPY 03/26/2024 Next Appt Details Provider Name:Puma Mcdowell , 06/26/2024 11:40:00 AM, [address] [place] [address], [phone], Insurance Providers Payer Name Payer Address Payer Phone Subscriber Number Group Number Insured Name Patient Relationship to Insured Coverage Start Date Coverage End Date [facility] [address] [address] [place], [place] [id number] DAVID ARREGUIN Self - patient is the insured Medical (General) History Medical History History ICD Code Denies IN,DM,CVA,Lung disease,renal dise ase Surgical History Surgery Date(Month/Year) Abdominoplasty and breast implants in [facility] B[facility] Benign breast biopsy
--- OUTSIDE RECORDS SUMMARY | 2024-06-10 13:35 | XMS_ITS ---
Author Organization [facility] Address [address] [place] [id number] Care Team Providers Care Claims Representative Name Role Phone Jeyson Yost MD Primary Care Provider Puma Stephenson Unavailable [phone] Allergies No Known Allergies REASON FOR VISIT Patient presents today for constipation Medications Medication SIG (Take, Route, Fr equency, Duration) Notes Start Date End Date Status Omeprazole 20 MG 1 capsule 1/2 to 1 h our before morning meal Orally Once a day A ctive Immunizations Vaccine Route Administration Date Status Comme [...] Problem Status W/U Status Risk Notes Problem Chronic constipation (572192312) Chronic constipation (K59.09) Active confirmed Problem Colon cancer screening (150629259) Colon cancer screening (Z12.11) Active confirmed Problem Gastroesophageal reflux disease (disorder) (930701724) Chronic GERD (K21.9) Active confirmed Vital Signs Temperature 98.9 degrees Fahrenheit 03/26/20 24 Blood pressure systolic 001 mm Hg 03/26/20 24 Blood pressure diastolic 01 mm Hg 024 Height 63 in 03/26/2024 Weight 177.6 lbs 03/26/2024 BMI 31.46 kg/m2 03/26/2024 Encounters Encounter Location Date Provider Diagnosis [facility] [address] [place] [address] 03/26/2024 Puma Mcdowell Chronic constipation K59.09 ; Colon cancer screening Z12.11 and Chronic GERD K21.9 Assessments Encounter Date Diagnosis (ICD Code) Assessment Notes Treatment Notes Treatment Clinical Notes Section Notes 03/26/2024 Chronic constipation (ICD-10 - K59.09) Start [...] keep you advised of her progress. 03/26/2024 Colon cancer screening (ICD-10 - Z12.11) [...] again for allowing me to participate in [facility] care. I shall continue to keep you [...] again for allowing me to participate in [facility] care. I shall continue to keep you advised of her progress. Plan Of Treatment Treatment Notes Assessment Notes Chronic constipation Start 2 Fiber Metamucil pills with a large glass of water once or twice a day for the constipation Try to decrease the Magnesium pills that you are using Future Test Test Name Order Date UPPER GI ENDOSCOPY 03/26/2024 COLONOSCOPY 03/26/2024 Next Appt Details Follow Up: prn, Reason: Provider Name:Puma Lindsey Mcdowell , 06/26/2024 11:40:00 AM, [address], [place], [phone], Progress Notes * DAVID ARREGUINDOB:[birth year] (48 yo F)Acc No.[id number]:03/26/2024 Progress Notes Patient:?DAVID ARREGUIN Provider:?Puma Mcdowell MD :1975???Age:48 Y???Sex:Female D ate:03/26/2024 Address:[address] [place], [place] [id number] Pcp:Jeyson Yost MD Subjective: * Chief Complaints: * ???Patient presents today fo r constipation * HPI: ???incontinence:? I saw David in consultation today in regard to further evaluation of her chronic constipation, gastroesophageal reflux, and discussion of colorectal cancer screening. ?As you know, David is a healthy 48-year-old female who describes a very long-standing history of years of constipation. She describes several days at a time without any bowel movements. This does seem to be worsening more recently. She does have some uohq-kuk-dsjtywy magnesium supplements which do seem to help her in this regard. She denies any signs of hematochezia or melena. She does have some abdominal bloating but denies any specific abdominal pains, jaundice, unintentional weight loss, nausea, or vomiting. She enjoys a good appetite. She does use omeprazole at least several times a week for a reflux with good relief. She denies any dysphagia, early satiety, nor odynophagia. ?She has never had an endoscopy or colonoscopy. She denies any known family history of colon cancer. ?Laboratories in 2021 revealed a normal CBC, normal chemistries and LFTs, and normal TSH. * ROS:?General/Constitutional:?Change in appetite?denies.?Chills?denies.?Fatigue?denies.?Ophthalmologic:?Comments?all negative.?ENT:?Comments?all negative.?Respiratory:?hemoptysis?denies.?Cough?denies.?Cardiovascular:?Chest pain?denies.?Orthopnea?denies.?Gastrointestinal:?Comments?See HPI for details.?Genitourinary:?Hematuria?denies.?Dysuria?denies.?Musculoskeletal:?Painful joints?denies.?Weakness?denies.?Skin:?Itching?denies.?Rash?denies.?Neurologic:?Headache?denies.?Seizures?denies.?Psychiatric:?Comments?all negative.? * Medical History:? * Surgical History:?Abdominopl asty and breast implants in [facility] Benign breast biopsy * Hospitalization/Major Diagno stic Procedure:?No Hospitalization History. * Family History:?Father: ramon pearl?Mother: alive.? No family history of colon cancer or liver cancer. * Social History:?Tobacco Use:?Tobacco Use/Smoking?Patient is a?nonsmoker.?Drugs/Alcohol:?Alcohol Screen?Did you have a drink containing alcohol in the past year??No,?Points?0,?Interpretation?Negative.?Nonsmoker; no sig alcohol. * Medications:?TakingOmeprazol e 20 MG Capsule Delayed Release 1 capsule 1/2 to 1 hour before morning meal Orally Once a dayTaking Omeprazole 20 MG Capsule Delayed Release 1 capsule 1/2 to 1 hour before morning meal Orally Once a day * Allergies:?N.K.D.A.yes[Aller gies Verified] Objective: * Vitals:?Wt: 177.6 lbs, Ht: 6 3 in, BMI:31.46 Index, BP: 001/01 mm Hg, Temp: 98.9, Ht-cm: 160.02, Wt-k.56. * Examination: ???General Examination: ?GENERAL APPEARANCE:?pleasant, well nourished, well developed, in no acute distress.?EYES:?sclera non-icteric.?ORAL CAVITY:?mucosa moist.?NECK/THYROID:?no cervical lymphadenopathy, neck supple.?SKIN:?nonjaundiced, no spider angiomata.?HEART:?S1, S2 normal.?LUNGS:?clear to auscultation bilaterally.?ABDOMEN:?normal bowel sounds, no guarding or rigidity, no guarding or rigidity, no masses palpable, soft, nontender, nondistended.?EXTREMITIES:?no edema.?NEUROLOGIC:?alert and oriented.? Assessment: * Assessment: 1.?Chronic constipation - K5 9.09 (Primary)?2.?Colon cancer screening - Z12.11?3.?Chronic GERD - K21.9? Overall, David appears quit e well. Her chronic constipation does not seem worrisome, but nonetheless is bothersome to her. We did review the need to stay on a high- fiber diet, plenty of fluids, and to start [...] to keep you advised of her progress. Plan: * Treatment: 2.?Colon cancer screening?Procedure: COLONOSCOPY (Ordered for 03/26/2024) 3.?Chronic GERD?Procedure: UPPER GI ENDOSCOPY (Ordered for 03/26/2024)* with MACsched for 06/26/24 at 11:40 am * Immunizations:? Influenza (Not administered - Refused: Patient decision) * Procedure Codes:?3017F COLOR ECTAL CA SCREEN DOC [id number] TOBACCO [id number] BP SCR NOT PRFRM REC REASON NOS * Preventive Medicine:? ??Counseling:?Care goal follow-up plan:?Above Normal BMI Follow-up?Giving encouragement to exercise,?BMI management provided?Yes.? * Follow Up:?prn * * Sign off status: Completed true * Provider:?Puma Mcdowell MD Date:? 024 Generated for Tanya gray/Zackary/eTransmitting on:?06/10/2024 01:35 PM EDT History and Physical Notes * HPI (History of Present Illness) Category Sub-Category Detail Notes Category Not es incontinence I saw David in consultation today in regard to further evaluation of her chronic constipation, gastroesophageal reflux, and discussion of colorectal cancer screening. As you know, David is a healthy 48-year-old female who describes a very long-standing history of years of constipation. She describes several days at a time without any bowel movements. This does seem to be worsening more recently. She does have some blms-crk-eogvule magnesium supplements which do seem to help her in this regard. She denies any signs of hematochezia or melena. She does have some abdominal bloating but denies any specific abdominal pains, jaundice, unintentional weight loss, nausea, or vomiting. She enjoys a good appetite. She does use omeprazole at least several times a week for a reflux with good relief. She denies any dysphagia, early satiety, nor odynophagia. She has never had an endoscopy or colonoscopy. She denies any known family history of colon cancer. Laboratories in 2021 revealed a normal CBC, normal chemistries and LFTs, and normal TSH. Examination Category Sub-Category Detail Notes Category Not es General Examination GENERAL APPEARANCE: pleasant , well nourished, well developed, in no acute distress HEAD: EYES: sclera non-icteric EARS: NOSE: THROAT: NECK/THYROID: no cervical lymphade nopathy, neck supple HEART: S1, S2 normal CHEST: LUNGS: clear to auscultatio n bilaterally ABDOMEN: normal bowel sounds, no guarding or rigidity, no guarding or rigidity, no masses palpable, soft, nontender, nondistended NEUROLOGIC: alert and oriented SKIN: nonjaundiced, no spi neisha angiomata EXTREMITIES: no edema PERIPHERAL PULSES: BACK: BREASTS: MUSCULOSKELETAL: MALE GENITOURINARY: LYMPH NODES: RECTAL EXAM: FEMALE GENITOURINARY: ORAL CAVITY: mucosa moist
== END 2024-06-10 12:37 | disposition home or self-care (01) ==
LOC: HO.HMCH 11:25
PROVIDERS: PCP Internal Medicine; Visit Provider Internal Medicine
DX: M54.50 Low back pain, unspecified (principal)

== ENCOUNTER → 2024-06-10 11:24 | Outpatient (BNVA) | payer OTHER, SELFPAY | PROVIDERS: PCP Internal Medicine; Visit Provider Internal Medicine | DX: M54.50 Low back pain, unspecified (principal) | CPT/HCPCS: 99212 ==